=== PATIENT | female | born 1935 | race Two or more races ===

== ENCOUNTER 2018-04-03 15:40 | Outpatient (CLI) | payer OTHER ==
[~2018-04-03 15:40] MED LIST: AMARIL PO; GLUCOPHAGE XR500 MG; KLONOPIN0.5 MG/TAB; NEURONTIN250 MG/5 M PO; SYNTHROID50 MCG
== END 2018-04-03 15:48 | disposition home or self-care (01) ==
LOC: RAD 501 15:40
DX: S63.8X2A Sprain of other part of left wrist and hand, initial encounter (principal); M79.642 Pain in left hand

== ENCOUNTER 2021-02-10 02:02 | Emergency (ER) | payer OTHER ==
[~2021-02-10] VITALS: Ht 180.3 cm; Wt 86.2 kg
== END 2021-02-10 11:01 ==
LOC: ER 02:02
DX: R55 Syncope and collapse (principal)

== ENCOUNTER 2022-04-16 15:46 | Emergency (ER) | payer OTHER ==
[~2022-04-16] VITALS: Ht 152.4 cm; Wt 45.4 kg
[2022-04-16] MEDS ORDERED: BACTRIM DS TAB1 EACH PO (18:06)
== END 2022-04-16 21:23 | disposition home or self-care (01) ==
LOC: ER 15:46
DX: D64.9 Anemia, unspecified (principal); L03.116 Cellulitis of left lower limb; Z20.828 Contact with and (suspected) exposure to other viral communicable diseases